=== PATIENT | male | born 1960 | race Hispanic/Latino ===

== ENCOUNTER 2018-01-11 17:45 | Emergency (ER) | payer MEDICAID ==
[2018-01-11] MEDS ORDERED: CEPHALEXIN 500 MG CAPSULE ONE (18:15)
[2018-01-11] MEDS ORDERED: LIDOCAINE HCL 1% 20 ML VIAL ONE (18:15)
[2018-01-11] MEDS ORDERED: ACETAMINOPHEN EXTRA STRENGTH 500 MG TABLET ONE (19:45)
[2018-01-11] MEDS ORDERED: SULFAMETHOX-TMP DS 800/160 TAB ONE (19:45)
== END 2018-01-11 20:44 | disposition home or self-care (01) ==
LOC: EDH 17:45
DX: L03.011 Cellulitis of right finger (principal); E78.5 Hyperlipidemia, unspecified
CPT/HCPCS: 26010